=== PATIENT | male | born 1955 | race Caucasian/White ===

== ENCOUNTER → 2018-08-20 | Outpatient (CLI) | payer OTHER | LOC: EMCIMAGING 14:15 | PROVIDERS: ATTEND Family Medicine | DX: R09.89 Other specified symptoms and signs involving the circulatory and respiratory systems (principal); R91.8 Other nonspecific abnormal finding of lung field; Z72.0 Tobacco use | CPT/HCPCS: 71046-PN ==

== ENCOUNTER → 2018-08-21 | Outpatient (CLI) | payer OTHER | LOC: EMCIMAGING 12:34 | PROVIDERS: ATTEND Family Medicine | DX: J94.9 Pleural condition, unspecified (principal); R91.8 Other nonspecific abnormal finding of lung field; I25.10 Atherosclerotic heart disease of native coronary artery without angina pectoris | CPT/HCPCS: 71260-PN ==

== ENCOUNTER 2018-09-02 12:12 | Day surgery (SDC) | payer OTHER ==
[2018-09-02] MEDS ORDERED: ALBUTEROL 3 ML DEYVIAL IH ONE (13:10)
[2018-09-02] MEDS ORDERED: LR 1,000 ML IV ONE (13:10)
[2018-09-02] MEDS ORDERED: EPINEPHrine 1 MG/ML INJ ONE (13:39)
[2018-09-02] MEDS ORDERED: fentaNYL 100 MCG/2 ML INJ ONE (13:40)
[2018-09-02] MEDS ORDERED: MIDAZOLAM 2 MG/2 ML VIAL ONE (13:40)
[2018-09-02] MEDS ORDERED: LIDOCAINE 1% 300 MG/30 ML SDV ONE (13:40)
--- NOTE | 2018-09-02 13:44 | PDHPUP ---
History & Physical Update H&P update statement: This history and physical update is based on an assessment of the patient which was completed after admission or registration (within 24 hours), but prior to the surgery/procedure. H&P update: H&P reviewed & patient examined, no change in patient's condition since H&P completed
--- NOTE | 2018-09-02 13:44 | PDPROPOC ---
Sedation Plan of Care Sedation Plan of Care: vital signs stable, mental status noted, patient educated of risks, benefits, alternatives, patient can tolerate sedation ASA Classification: ASA 2 Planned drugs: fentanyl, midazolam Mallampati Score: Class 2 Mallampati Reference Image: Patient passed 3-3-2 rule?: Yes
--- NOTE | 2018-09-02 14:21 | BVPULMO ---
[facility]- Pulmonology Patient Name: Olvin Royal Procedure Date: 09/02/2018 1:39 PM Patient Type: Outpatient Attending MD/ER Physician: Atif Luke MD Procedure: Bronchoscopy Indications: Left lower lobe mass Providers: Atif Luke MD Medicines: Lidocaine 4% via nebulizer with Albuterol 2.5 mg, Fentanyl 125 mcg IV, Midazola m 5 mg IV, Lidocaine 1% applied to cords 2 mL, Lidocaine 1% subglottic space 4 mL, Oxygen 4 L/min Complications: No immediate complications Procedure: After informed consent, a time out was performed. N95 masks were worn, and the procedure was done in a negative pressure room. The patient was given appropria te topical anesthesia and intravenous sedation. The fiberopic bronchoscope was pas sed via a bite block orally into the larynx and subsequently into the lower trachea bronchial tree. Throughout the procedure, the patient's blood pressure, pulse, and oxygen saturations were monitored continuously. The Bronchoscope was introduced through the mouth and advanced to the tracheobronchial tree. The procedure was accomplished without difficulty. The patient tolerated the procedure well. The total duration of the procedure was 20 minutes. Findings: Left Lung Abnormalities: A partially obstructing mass was found in the left low er lobe. This was submucosal and extrisically compressing the left lower lobed elo eoff. Endobronchial biopsies were performed in the left lower lobe using forceps and sent for histopathology examination. Five samples were obtained. Washings were obtai mick in the left lower lobe and sent for cell count, bacterial culture, viral smears & culture, and fungal & AFB analysis and cytology. The return was bloody. Guided brushings were obtained in the left lower lobe with a cytology brush and sent f or routine cytology. One sample was obtained. Post Op Diagnosis: - Left lower lobe mass - A mass was found in the left lower lobe. - An endobronchial biopsy was performed. - Washings were obtained. - Brushings were obtained. - There is no bronchoscopic evidence for a mass. Estimated Blood Loss: Estimated blood loss: none. Recommendation: - Await test results. Attending Participation: I personally performed the entire procedure. Atif Luke MD Atif Luke MD 09/02/2018 2:21:19 PM This report has been signed electronicallyThomas MD Marly Number of Addenda: 0 Note Initiated On: 09/02/2018 1:39 PM [email or web address]
[2018-09-02 15:20] VITALS: BP 140/73
== END 2018-09-02 15:47 | disposition home or self-care (01) ==
LOC: FSGY 12:12
PROVIDERS: ATTEND Internal Medicine Pulmonary Disease
DX: R91.8 Other nonspecific abnormal finding of lung field (principal); R05 Cough; F17.210 Nicotine dependence, cigarettes, uncomplicated; I10 Essential (primary) hypertension; J44.1 Chronic obstructive pulmonary disease with (acute) exacerbation
CPT/HCPCS: J0171; J2250; J3010; J7613

== ENCOUNTER → 2018-09-14 | Day surgery (SDC) | payer OTHER ==
[~2018-09-14] MED LIST: FLUMAZENIL 0.5 MG/5 ML MDV IVP ONE; FLUMAZENIL 0.5 MG/5 ML MDV IVP PRN; LIDOCAINE 1% 300 MG/30 ML SDV ONE; MEPERIDINE 25 MG/ML SYR IVP PRN; MIDAZOLAM 2 MG/2 ML VIAL IVP PRN; MIDAZOLAM 2 MG/2 ML VIAL ONE; NALOXONE HCL 0.4 MG/ML INJ IVP PRN; NALOXONE HCL 0.4 MG/ML INJ ONE; NS 1,000 ML IV SCH; ceFAZolin 2 GM/DEXTROSE 100 ML IV ONE; fentaNYL 100 MCG/2 ML INJ IVP PRN; fentaNYL 100 MCG/2 ML INJ ONE
[2018-09-14 10:54] LABS: INR 0.96 (0.83-1.16); PROTIME(PATIENT) 12.4 SEC (12.0-15.0)
--- NOTE | 2018-09-14 12:47 | PDRADPRE ---
Radiology History & Physical Indication for procedure: lung nodule/mass (Dominant LLL lung mass; Plan for CT guided biopsy) Home medications: Ascorbic Acid [Vitamin C 500 mg (*)] 500 mg PO DAILY 08/28/18 [Last Taken 1] Losartan Potassium [Cozaar 50 mg (*)] 50 mg PO DAILY 08/28/18 [Last Taken 1] Multivitamin [One-Daily Multi-Vitamin] 08/28/18 [Last Taken 08/29/18] Vitamin D3 50 mcg 08/28/18 [Last Taken 09/13/18 1] Allergies/Adverse Reactions: No Known Allergies Allergy (Verified 08/28/18 14:13) Mental status: A&Ox3 Heart exam: regular rate and rhythm Lungs exam: clear to auscultation Mallampati Score: Class 2
--- NOTE | 2018-09-14 14:02 | PDRADPN ---
Radiology Procedure Note Date of Procedure: 09/14/18 Radiologist: Atif Macias Anesthesia: IV Sedation Pre-op Diagnosis: Lung mass Post-op Diagnosis: lung mass Indication: LLL pulmonary mass Procedure: CT guided core biopsy Finding(s): 18 ga cores sent in saline/formalin for micro/path Inf/Abcess present in the surg proc area at time of surgery?: No
[2018-09-14 16:37] VITALS: BP 154/94
== END | disposition home or self-care (01) ==
LOC: FIMAGING 10:03
PROVIDERS: ATTEND Radiology Vascular & Interventional Radiology
DX: C34.32 Malignant neoplasm of lower lobe, left bronchus or lung (principal); J15.9 Unspecified bacterial pneumonia; J44.9 Chronic obstructive pulmonary disease, unspecified
CPT/HCPCS: J2250; J2310; J3010

== ENCOUNTER → 2018-10-02 | Outpatient (CLI) | payer OTHER | LOC: EMCIMAGING 09:33 | PROVIDERS: ATTEND Internal Medicine Hematology & Oncology | DX: C34.32 Malignant neoplasm of lower lobe, left bronchus or lung (principal) | CPT/HCPCS: 70553-PN ==

== ENCOUNTER 2018-10-06 10:04 | Day surgery (SDC) | payer OTHER ==
[2018-10-06] MEDS ORDERED: LIDOCAINE 1% 5 ML SDV ONE (10:20)
[2018-10-06] MEDS ORDERED: MIDAZOLAM 2 MG/2 ML VIAL ONE (10:58)
[2018-10-06] MEDS ORDERED: FLUMAZENIL 0.5 MG/5 ML MDV IVP ONE (10:58)
[2018-10-06] MEDS ORDERED: fentaNYL 100 MCG/2 ML INJ ONE (10:58)
[2018-10-06] MEDS ORDERED: NALOXONE HCL 0.4 MG/ML INJ ONE (10:58)
--- NOTE | 2018-10-06 11:26 | PDRADPRE ---
Radiology History & Physical Indication for procedure: cancer (Lung cancer with bilateral lung nodules - Plan for RIGHT lung nodule biopsy) Home medications: Ascorbic Acid [Vitamin C 500 mg (*)] 500 mg PO DAILY 08/28/18 [Last Taken 1] Losartan Potassium [Cozaar 50 mg (*)] 50 mg PO DAILY 08/28/18 [Last Taken 1] Multivitamin [One-Daily Multi-Vitamin] PO DAILY 08/28/18 [Last Taken 08/29/18] Vitamin D3 50 mcg PO DAILY 08/28/18 [Last Taken 09/13/18 1] Allergies/Adverse Reactions: No Known Allergies Allergy (Verified 08/28/18 14:13) Mental status: A&Ox3 Heart exam: regular rate and rhythm Lungs exam: clear to auscultation Mallampati Score: Class 2
--- NOTE | 2018-10-06 12:49 | PDRADPN ---
Radiology Procedure Note Date of Procedure: 10/06/18 Radiologist: Atif Macias Anesthesia: IV Sedation Pre-op Diagnosis: Right pulmonary nodules Post-op Diagnosis: Right pulmonary nodules Indication: Right pulmonary nodules - Left lung cancer Procedure: CT guided right pulmonary nodule biopsy Finding(s): 3 18 ga cores right middle lobe dominant nodules Inf/Abcess present in the surg proc area at time of surgery?: No
[2018-10-06 14:37] VITALS: BP 150/93
== END 2018-10-06 14:35 | disposition home or self-care (01) ==
LOC: FIMAGING 10:04
PROVIDERS: ATTEND Internal Medicine Hematology & Oncology
PROC: 0BBD3ZX Excision of Right Middle Lung Lobe, Percutaneous Approach, Diagnostic (ICD-10-PCS; principal; 2018-10-06 12:40)
DX: C34.2 Malignant neoplasm of middle lobe, bronchus or lung (principal); C34.32 Malignant neoplasm of lower lobe, left bronchus or lung
CPT/HCPCS: J2250; J2310; J3010